=== PATIENT | male | born 1985 | race Hispanic/Latino ===

== ENCOUNTER → 2019-03-29 | Outpatient (CLI) | payer OTHER ==
--- NOTE | 2019-03-29 11:38 | Diagnostic Imaging Report ---
TECHNIQUE: Magnetic resonance imaging of the RIGHT SHOULDER was performed WITHOUT injected contrast. COMPARISON: None available. HISTORY: Right shoulder pain, fall FINDINGS: MUSCLES AND TENDONS: Rotator Cuff: Tendons: Partial-thickness articular sided tearing of supraspinatus and infraspinatus with retraction of the deep fibers measuring approximately 2 cm. Partial-thickness tearing, high-grade involving the subscapularis. Muscles: No focal muscle atrophy. Biceps Tendon: The long head of the biceps tendon is bifid with the medial tendon which attaches to the glenoid labrum medially dislocated lateral tendon which attaches to the supraspinatus tendon is within the bicipital groove. GLENOHUMERAL JOINT: Joint effusion. Glenoid Labrum: No detached tear of the labrum, however probably not attached tearing of the anteroinferior labrum. Additional tearing of the glenohumeral ligament predominate from the humeral insertion example on coronal image 12 and 13 and possibly at level detachment. Articular Cartilage: No focal defect. AC JOINT AND ACROMION: No hypertrophic degenerative changes of the acromioclavicular joint. The acromion is unremarkable. BONE: No acute fracture. SOFT TISSUES: Extensive soft tissue swelling anteriorly IMPRESSION: Tearing of the anterior band of the glenohumeral ligament predominantly at the humeral attachment (HAGL) and probable nondetached tearing of the glenoid attachment and anteroinferior labrum. Subscapularis high-grade partial-thickness tearing. Long head biceps tendon is bifid as above with medial dislocation of the medial tendon. Supraspinatus and infraspinatus partial-thickness articular sided tearing with retraction of the fibers. Signed by: Dr. Gray Varghese M.D. on 03/29/2019 11:35 AM
== END ==
LOC: MRI 10:09
PROVIDERS: ATTEND Family Medicine
DX: S43.004A Unspecified dislocation of right shoulder joint, initial encounter (principal)